=== PATIENT | male | born 2000 | race Caucasian/White ===

== ENCOUNTER 2021-03-08 02:01 | Emergency (ER) | payer MEDICAID ==
[~2021-03-08] VITALS: Ht 170.2 cm; Wt 80.0 kg
[2021-03-08] MEDS ORDERED: PROPOFOL 200MG/20ML VIAL IV ONE (02:30)
[2021-03-08] MEDS ORDERED: MORPHINE SULFATE 4 MG/ML CPJ (NOT FOR IM USE) IV ONE (02:30)
[2021-03-08] MEDS ORDERED: ONDANSETRON HCL 4MG/2ML INJ IV ONE (02:30)
[2021-03-08] MEDS ORDERED: IBUP-2029 MT (05:40)
[2021-03-08 08:22] VITALS: BP 110/67
== END 2021-03-08 08:49 | disposition home or self-care (01) ==
LOC: ER 02:01
DX: S93.04XA Dislocation of right ankle joint, initial encounter (principal); S82.891A Other fracture of right lower leg, initial encounter for closed fracture; X50.1XXA Overexertion from prolonged static or awkward postures, initial encounter; W01.0XXA Fall on same level from slipping, tripping and stumbling without subsequent striking against object, initial encounter; Y92.9 Unspecified place or not applicable; Y93.39 Activity, other involving climbing, rappelling and jumping off
CPT/HCPCS: 27840; 73590; 73600; 73620; 94640; 96374; 96375; 99152; 99285; J2270; J2405; J2704; Z7610

== ENCOUNTER 2021-08-01 17:57 | Emergency (ER) | payer MEDICAID ==
[~2021-08-01] VITALS: Ht 177.8 cm; Wt 59.0 kg
[~2021-08-01 17:57] MED LIST: IBUP-2029 MT
[2021-08-01] MEDS ORDERED: NALOXONE HCL 1 MG/ML 2ML VIAL IV ONE (18:15)
[2021-08-01 18:33] LABS: BASOPHILS % 0.9 % (0.0-2.0); EOSINOPHILS % 0.1 % (0.0-5.0); HEMOGLOBIN. 12.8 g/dL (14.0-18.0); LYMPHOCYTES % 19.7 % (20.0-50.0); MEAN CORPUSCULAR HEMOGLOBIN 29.2 pg (28.0-32.0); MEAN CORPUSCULAR VOLUME 86.6 fL (80.0-94.0); MEAN PLATELET VOLUME 6.3 fl (7.4-10.4); MONOCYTES % 3.6 % (2.0-8.0); NEUTROPHILS % 75.7 % (40.0-76.0); PLATELET 353 x1000/uL (130-400); RED BLOOD CELL COUNT 4.39 mill/uL (4.7-6.1); RED CELL DISTRIBUTION WIDTH 13.1 % (11.6-14.6)
[2021-08-01 18:37] LABS: CHLORIDE 105 mEq/L (98-107)
[2021-08-01 18:42] LABS: ETHANOL BLOOD < 10 mg/dL
[2021-08-01] MEDS ORDERED: ONDANSETRON HCL 4MG/2ML INJ IV ONE (19:00)
[2021-08-01] MEDS ORDERED: KCL 10MEQ/50ML PREMIX 50 ML IV ONE (20:00)
[2021-08-01] MEDS ORDERED: SODIUM CHLORIDE 0.9% 1,000 ML IV ONE (21:15)
[2021-08-01] MEDS ORDERED: KETOROLAC 30MG/ML VIAL IV ONE (22:15)
[2021-08-02] MEDS ORDERED: NALO4SPR BOTHNSTRLS (00:55)
[2021-08-02 01:27] VITALS: BP 128/81
== END 2021-08-02 01:27 | disposition home or self-care (01) ==
LOC: ER 17:57
DX: G93.40 Encephalopathy, unspecified (principal); T40.601A Poisoning by unspecified narcotics, accidental (unintentional), initial encounter; T40.411A Poisoning by fentanyl or fentanyl analogs, accidental (unintentional), initial encounter; Y92.481 Parking lot as the place of occurrence of the external cause
CPT/HCPCS: 36415; 70450; 70486; 71045; 80053; 80307; 80320; 80329; 82962; 83605; 85025; 96361; 96365; 96375; 99285; J1885; J2405; J3480; J7030; G0480